=== PATIENT | female | born 1955 | race Caucasian/White ===

== ENCOUNTER 2021-02-19 18:50 | Emergency (ER) | payer OTHER ==
[~2021-02-19 18:50] MED LIST: CO Q-10100 MG PO; FISH OIL PO; FUROSEMIDE20 MG PO; GLUCOTROL 10 MG10 MG PO; IMDUR ER TAB 3030 MG PO; LEVEMIR100 UNIT/1 SQ; LIPITOR TAB 2020 MG PO; NOVOLOG SQ; PLAVIX 75 MG TA75 MG PO; SYNTHROID150 MCG PO; TRICOR48 MG PO; VITAMIN B12 SQ; VITAMIN D250000 UNIT PO
== END 2021-02-19 21:34 | disposition home or self-care (01) ==
LOC: ER1 18:50
DX: B34.9 Viral infection, unspecified (principal); I25.10 Atherosclerotic heart disease of native coronary artery without angina pectoris; E11.9 Type 2 diabetes mellitus without complications; I10 Essential (primary) hypertension; Z20.822 Contact with and (suspected) exposure to COVID-19; Z90.49 Acquired absence of other specified parts of digestive tract; Z88.1 Allergy status to other antibiotic agents; Z91.041 Radiographic dye allergy status; E78.5 Hyperlipidemia, unspecified; I25.2 Old myocardial infarction; Z95.1 Presence of aortocoronary bypass graft; Z90.710 Acquired absence of both cervix and uterus
CPT/HCPCS: 99284; U0002

== ENCOUNTER → 2021-09-01 | Outpatient (CLI) | payer OTHER | LOC: RAD 09:09 | DX: R11.10 Vomiting, unspecified (principal); K22.89 Other specified disease of esophagus | CPT/HCPCS: 74246 ==

== ENCOUNTER 2021-12-28 11:16 | Emergency (ER) | payer OTHER ==
[~2021-12-28] VITALS: Ht 160 cm; Wt 79.4 kg
[2021-12-28 13:07] LABS: HEMOGLOBIN 15.2 gm/dl (12.3-15.3); RED BLOOD COUNT 5.29 M/UL (4.00-5.10)
== END 2021-12-28 15:38 | disposition home or self-care (01) ==
LOC: ER1 11:16
PROVIDERS: Physician Assistant
DX: U07.1 COVID-19 (principal); Z23 Encounter for immunization; J40 Bronchitis, not specified as acute or chronic; J44.9 Chronic obstructive pulmonary disease, unspecified; I51.9 Heart disease, unspecified; I25.10 Atherosclerotic heart disease of native coronary artery without angina pectoris; Z88.0 Allergy status to penicillin; Z91.041 Radiographic dye allergy status; Z85.850 Personal history of malignant neoplasm of thyroid
CPT/HCPCS: 0240U; 71045; 80053; 81001; 85025; 87086; 99285; M0222